=== PATIENT | female | born 1995 | race African-American/Black ===

== ENCOUNTER 2017-01-23 18:12 | Emergency (ER) | payer BC, OTHER ==
[~2017-01-23] VITALS: Ht 167.6 cm; Wt 54.4 kg
[2017-01-23 18:30] LABS: BILIRUBIN,URINE NEGATIVE (NEG); GLUCOSE,URINE NEGATIVE (NEG); NITRITE,URINE NEGATIVE (NEG); PH,URINE 5.5; PROTEIN,URINE 100 mg/dL (NEG-TRACE); UROBILINOGEN,URINE 0.2 mg/dL (0.2 mg/dL)
[2017-01-23 18:52] LABS: BACTERIA,URINE FEW /HPF (0-FEW); RBC,URINE 0 /HPF (0-2); SQUAMOUS EPITHELIAL CELL,UR FEW /LPF
[2017-01-23] MEDS ORDERED: fentaNYL PF VIAL 100 MCG/2 ML VIAL IV PRN (19:15)
[2017-01-23] MEDS ORDERED: ONDANSETRON PF 4 MG/2 ML VIAL. IV ONE (19:30)
[2017-01-23] MEDS ORDERED: IV NORMAL SALINE 1000ML BAG 1,000 ML IV SCH (19:30)
[2017-01-23 19:36] LABS: BASO % 1 % (0-3); EOS % 1 % (0-3); HEMOGLOBIN 12.6 g/dL (12.0-15.5); LYMPH # 1.8 x10^3/uL (1.0-4.8); LYMPH % 30 % (24-48); MEAN CORPUSCULAR HEMOGLOBIN 30 pg (25-35); MEAN CORPUSCULAR HGB CONC 34 g/dL (31-37); MEAN CORPUSCULAR VOLUME 88 fL (79-100); MONO % 6 % (0-9); NEUT % 63 % (31-73); PLATELET COUNT 269 x10^3/uL (140-400); RED BLOOD COUNT 4.22 x10^6/uL (3.50-5.40); RED CELL DISTRIBUTION WIDTH 13.3 % (11.5-14.5); WHITE BLOOD COUNT 6.2 x10^3/uL (4.0-11.0)
[2017-01-23 19:50] LABS: CALCIUM 9.5 mg/dL (8.5-10.1); CREATININE 0.7 mg/dL (0.6-1.0); GFR 127.8; POTASSIUM 3.7 mmol/L (3.5-5.1)
[2017-01-23 19:56] LABS: ALBUMIN 4.4 g/dL (3.4-5.0); ALBUMIN/GLOBULIN RATIO 1.4 (1.0-1.7); TOTAL BILIRUBIN 1.3 mg/dL (0.2-1.0); TOTAL PROTEIN 7.6 g/dL (6.4-8.2)
[2017-01-23] MEDS ORDERED: CONTRAST GIVEN MC PRN (20:30)
[2017-01-23] MEDS ORDERED: IOHEXOL 300 MG/ML 75 ML VIAL IV ONE (20:30)
--- NOTE | 2017-01-23 20:46 | RAD ---
CT study of the abdomen and pelvis with contrast Clinical indications: Left-sided abdominal pain. History of umbilical hernia surgery repair. TECHNIQUE: After IV infusion of 75 cc of Omnipaque 300, helical CT scanning of the abdomen and pelvis is performed. No GI contrast was administered. This may decrease the sensitivity to detect GI tract pathology. PQRS compliance Statement One or more of the following individualized dose reduction techniques were utilized for this study: 1. Automated exposure control 2. Adjustment of the mA and/or kV according to patient size 3. Use of iterative reconstruction technique COMPARISON: None available. FINDINGS: The liver and spleen and pancreas and gallbladder are normal. No extrahepatic biliary ductal dilatation is seen. No adrenal mass is evident. No focal aneurysmal dilatation of the abdominal aorta is seen. No enlarged abdominal or pelvic lymphadenopathy is seen. Both kidneys are functioning and no hydronephrosis or hydroureter or urinary tract stone is seen. Small subcentimeter hypodense nodule of the mid aspect of the right kidney is seen which is indeterminate. Urinary bladder is not abnormally distended. No uterine mass or fibroid is seen. No dominant ovarian cyst or mass is evident. No obstructive bowel pattern is seen. The appendix is difficult to visualize given the lack of GI contrast material and lack of mesenteric fat and retroperitoneal fat. No mesenteric inflammation is evident. No free fluid or free air is seen. No anterior abdominal wall hernia is seen. No lung base consolidation is seen. No osteolytic process is seen. IMPRESSION: No acute abnormality of the abdomen or pelvis is seen. Small subcentimeter hypodense indeterminate nodule of the right kidney. Recommend outpatient sonography for further evaluation. This measures 9 mm. Electronically signed by: Aneesh Wilkinson MD (01/23/2017 8:43 PM) [facility]
[2017-01-23] MEDS ORDERED: NAPROXEN 500 MG TABLET PO ONE (21:30)
[2017-01-23] MEDS ORDERED: metroNIDAZOLE 500 MG TABLET PO ONE (21:30)
[2017-01-23] MEDS ORDERED: NAPR250T2 PO (21:52)
[2017-01-23] MEDS ORDERED: METR500T8 PO (21:52)
[2017-01-23 22:14] VITALS: BP 122/59
--- NOTE | 2017-01-23 22:49 | ED.ADGEN ---
Past Medical History Past Medical History: IBS Past Surgical History: Other Additional Past Surgical Histo: HERNIA Alcohol Use: None Drug Use: None Adult General Chief Complaint Chief Complaint: ABDOMINAL PAIN HPI HPI Patient is a 21 year old woman, with history of irritable bowel syndrome, status post ventral hernia repair surgery, who presents to the emergency department with a complaint of left lower quadrant abdominal pain associated with nausea that began earlier this afternoon. Patient denies any fevers or chills, any travel or surgery, any diarrhea, any discharge or drainage from the vagina. She states that she has been on her period lower than usual. States that she does have irregular periods. Denies any possibility of . Patient's partner is in the room with her. Denies any concerns for STI exposures , denies similar symptoms previously. No urinary complaints. Patient's nursing note patient initially stated that she believes she had one episode of blood in her stool today, however during my evaluation she denies concern for blood in her stool. Review of Systems Review of Systems Constitutional: Denies fever or chills. [] Eyes: Denies change in visual acuity. [] HENT: Denies nasal congestion or sore throat. [] Respiratory: Denies cough or shortness of breath. [] Cardiovascular: Denies chest pain or edema. [] GI: Denies bloody stools or diarrhea. [] : Denies dysuria. [] Musculoskeletal: Denies back pain or joint pain. [] Integument: Denies rash. [] Neurologic: Denies headache, focal weakness or sensory changes. [] Endocrine: Denies polyuria or polydipsia. [] Lymphatic: Denies swollen glands. [] Psychiatric: Denies depression or anxiety. [] Current Medications Current Medications Current Medications Medications (Trade) Dose Ordered Sig/Aimee Start Time Stop Time Status Last Admin Dose Admin Fentanyl Citrate (Fentanyl 2ml Vial) 50 mcg PRN Q15MIN PRN 01/23/17 19:15 01/23/17 22:49 DC 01/23/17 19:21 50 MCG Info (Do NOT chart on this entry -- for MONITORING) 1 each PRN DAILY PRN 01/23/17 20:30 01/23/17 22:49 DC Iohexol (Omnipaque 300 Mg/ml) 75 ml 1X ONCE 01/23/17 20:30 01/23/17 20:31 DC 01/23/17 20:17 75 ML Metronidazole (Flagyl) 500 mg 1X ONCE 01/23/17 21:30 01/23/17 21:31 DC 01/23/17 21:21 500 MG Naproxen (Naprosyn) 500 mg 1X ONCE 01/23/17 21:30 01/23/17 21:31 DC 01/23/17 21:21 500 MG Ondansetron HCl (Zofran) 4 mg 1X ONCE 01/23/17 19:30 01/23/17 19:31 DC 01/23/17 19:20 4 MG Sodium Chloride 1,000 ml @ 1,000 mls/hr Q1H 01/23/17 19:30 01/23/17 20:29 DC 01/23/17 19:20 1,000 MLS/HR Allergies Allergies Allergies Coded Allergies Type Severity Reaction Last Updated Verified No Known Drug Allergies 01/10/14 No Physical Exam Physical Exam Constitutional: Well developed, well nourished, mild distress secondary to pain , non-toxic appearance. [] HENT: Normocephalic, atraumatic, bilateral external ears normal, oropharynx moist, no oral exudates, nose normal. [] Eyes: PERRLA, EOMI, conjunctiva normal, no discharge. [] Neck: Normal range of motion, no tenderness, supple, no stridor. [] Cardiovascular:Heart rate regular rhythm, no murmur, S1, S2, no rubs or gallops. [] Lungs & Thorax: Bilateral breath sounds clear to auscultation , no wheezing, rhonchi, rales. No chest or crepitus or tenderness. [] Abdomen: Bowel sounds normal, soft, tenderness palpation through the lower abdomen and pelvic region, no rebound or rigidity, positive for voluntary guarding, no masses, no pulsatile masses. [] Skin: Warm, dry, no erythema, no rash. [] Back: No tenderness, no CVA tenderness. [] Extremities: No tenderness, no cyanosis, no clubbing, ROM intact, no edema. Negative Homans sign. [] Neurologic: Alert and oriented X 3, normal motor function, normal sensory function, no focal deficits noted. [] Psychologic: Affect normal, judgement normal, mood normal. [] Pelvic examination: External examination is unremarkable, bimanual examination reveals mild tenderness throughout the uterine area, no no adnexal masses or tenderness. Moderate amount of dark red discharge noted on glove. Speculum examination performed without issue, although patient hasn't previously had a speculum examination and states it is uncomfortable. Normal-appearing cervix identified, with no active bleeding, no friability or other abnormalities, no lesions identified. Specimens taken without issue. Current Patient Data Vital Signs Vital Signs Date Time Temp Pulse Resp B/P (MAP) Pulse Ox O2 Delivery O2 Flow Rate FiO2 01/23/17 22:14 76 17 122/59 (80) 98 Room Air 01/23/17 18:20 98.4 98.4 Lab Values Laboratory Tests Test 01/23/17 17:31 01/23/17 18:21 01/23/17 18:39 POC Urine HCG, Qualitative Hcg negative (Negative) Urine Collection Type Unknown Urine Color Yellow Urine Clarity Clear Urine pH 5.5 Urine Specific Galva >=1.030 Urine Protein 100 mg/dL (NEG-TRACE) Urine Glucose (UA) Negative mg/dL (NEG) Urine Ketones (Stick) Negative mg/dL (NEG) Urine Blood Moderate (NEG) Urine Nitrite Negative (NEG) Urine Bilirubin Negative (NEG) Urine Urobilinogen Dipstick 0.2 mg/dL (0.2 mg/dL) Urine Leukocyte Esterase Negative (NEG) Urine RBC 0 /HPF (0-2) Urine WBC 1-4 /HPF (0-4) Urine Squamous Epithelial Cells Few /LPF Urine Bacteria Few /HPF (0-FEW) Urine Mucus Mod /LPF White Blood Count 6.2 x10^3/uL (4.0-11.0) Red Blood Count 4.22 x10^6/uL (3.50-5.40) Hemoglobin 12.6 g/dL (12.0-15.5) Hematocrit 37.0 % (36.0-47.0) Mean Corpuscular Volume 88 fL (79-100) Mean Corpuscular Hemoglobin 30 pg (25-35) Mean Corpuscular Hemoglobin Concent 34 g/dL (31-37) Red Cell Distribution Width 13.3 % (11.5-14.5) Platelet Count 269 x10^3/uL (140-400) Neutrophils (%) (Auto) 63 % (31-73) Lymphocytes (%) (Auto) 30 % (24-48) Monocytes (%) (Auto) 6 % (0-9) Eosinophils (%) (Auto) 1 % (0-3) Basophils (%) (Auto) 1 % (0-3) Neutrophils # (Auto) 3.9 x10^3uL (1.8-7.7) Lymphocytes # (Auto) 1.8 x10^3/uL (1.0-4.8) Monocytes # (Auto) 0.4 x10^3/uL (0.0-1.1) Eosinophils # (Auto) 0.0 x10^3/uL (0.0-0.7) Basophils # (Auto) 0.0 x10^3/uL (0.0-0.2) Sodium Level 140 mmol/L (136-145) Potassium Level 3.7 mmol/L (3.5-5.1) Chloride Level 104 mmol/L (98-107) Carbon Dioxide Level 25 mmol/L (21-32) Anion Gap 11 (6-14) Blood Urea Nitrogen 10 mg/dL (7-20) Creatinine 0.7 mg/dL (0.6-1.0) Estimated GFR (Cockcroft-Gault) 127.8 BUN/Creatinine Ratio 14 (6-20) Glucose Level 97 mg/dL (70-99) Calcium Level 9.5 mg/dL (8.5-10.1) Total Bilirubin 1.3 mg/dL (0.2-1.0) H Aspartate Amino Transferase (AST) 22 U/L (15-37) Alanine Aminotransferase (ALT) 24 U/L (14-59) Alkaline Phosphatase 65 U/L (46-116) Total Protein 7.6 g/dL (6.4-8.2) Albumin 4.4 g/dL (3.4-5.0) Albumin/Globulin Ratio 1.4 (1.0-1.7) Lipase 83 U/L (73-393) Laboratory Tests 01/23/17 18:39 Laboratory Tests 01/23/17 18:39 Microbiology 01/23/17 Wet Prep - Final, Complete EKG EKG Not indicated. [] Radiology/Procedures Radiology/Procedures [][facility] [address] [place] [address] IMAGING REPORT Signed PATIENT: SUKHDEVCRISTIAN Steven ACCOUNT: [id number] : 1995 LOCATION: ER AGE: 21 SEX: F EXAM STATUS: REG ER ORD. PHYSICIAN: DANG WRIGHT DO REASON: abd pain/L side PROCEDURE: CT ABD PELV W/ IV CONTRST ONLY CT study of the abdomen and pelvis with contrast Clinical indications: Left-sided abdominal pain. History of umbilical hernia surgery repair. TECHNIQUE: After IV infusion of 75 cc of Omnipaque 300, helical CT scanning of the abdomen and pelvis is performed. No GI contrast was administered. This may decrease the sensitivity to detect GI tract pathology. PQRS compliance Statement One or more of the following individualized dose reduction techniques were utilized for this study: 1. Automated exposure control 2. Adjustment of the mA and/or kV according to patient size 3. Use of iterative reconstruction technique COMPARISON: None available. FINDINGS: The liver and spleen and pancreas and gallbladder are normal. No extrahepatic biliary ductal dilatation is seen. No adrenal mass is evident. No focal aneurysmal dilatation of the abdominal aorta is seen. No enlarged abdominal or pelvic lymphadenopathy is seen. Both kidneys are functioning and no hydronephrosis or hydroureter or urinary tract stone is seen. Small subcentimeter hypodense nodule of the mid aspect of the right kidney is seen which is indeterminate. Urinary bladder is not abnormally distended. No uterine mass or fibroid is seen. No dominant ovarian cyst or mass is evident. No obstructive bowel pattern is seen. The appendix is difficult to visualize given the lack of GI contrast material and lack of mesenteric fat and retroperitoneal fat. No mesenteric inflammation is evident. No free fluid or free air is seen. No anterior abdominal wall hernia is seen. No lung base consolidation is seen. No osteolytic process is seen. IMPRESSION: No acute abnormality of the abdomen or pelvis is seen. Small subcentimeter hypodense indeterminate nodule of the right kidney. Recommend outpatient sonography for further evaluation. This measures 9 mm. Electronically signed by: Aye Wilkinson MD (01/23/2017 8:43 PM) [facility] DICTATED and SIGNED BY: AYE WILKINSON MD DATE: 01/23/172033 CC: DANG WRIGHT DO; NO PCP ~ Course & Med Decision Making Course & Med Decision Making Pertinent Labs and Imaging studies reviewed. (See chart for details) Patient appears acutely comfortable emergency department, urine test is negative, urinalysis did not reveal acutely concerning findings. No further nausea and vomiting in the ED. After examination, we'll proceed with CT of abdomen and pelvis, and laboratory studies. Patient agreeable this plan, resting more comfortably after receiving pain medication the ED. CT not reveal any evidence acutely concerning findings, noted to have a nodule in the kidney, which I discussed with patient, including need for follow-up. Patient voiced understanding and agreement. Wet prep was positive for bacterial vaginosis, I did discuss this with patient, patient received first dose of metronidazole and naproxen in the ED without issue, on reevaluation she states she is feeling much better and is ready to be discharged home. Discussed importance of follow- up, and establishing a primary care provider, discussed the patient the cultures taken today if they require follow-up will result in a phone call. As stated, patient denies any concerns for STI. Patient remained comfortable, discharged home in stable condition with prescription for metronidazole naproxen , contact information for [employer] and primary care providers, with clear and detailed return instructions and precautions. Dragon Disclaimer Dragon Disclaimer This electronic medical record was generated, in whole or in part, using a voice recognition dictation system. Departure Impression: Primary Impression: Bacterial vaginosis Disposition: 01 HOME, SELF-CARE Condition: IMPROVED Scripts Metronidazole (METRONIDAZOLE) 500 Mg Tablet 1 TAB PO BID, #14 TAB Prov: DANG WRIGHT DO 01/23/17 Naproxen (NAPROXEN) 250 Mg Tablet 250 MG PO BID Y for PAIN, #10 Prov: DANG WRIGHT DO 01/23/17 DANG WRIGHT DO Jan 23, 2017 22:49
== END 2017-01-23 22:17 | disposition home or self-care (01) ==
LOC: ER 18:12
DX: N76.0 Acute vaginitis (principal)
CPT/HCPCS: 36415; 74177; 80053; 81001; 81025; 83690; 85027; 87491; 87591; 96361; 96374; 96375; 99285; J2405; J3010; J7030; Q0111; Q9967

== ENCOUNTER 2017-02-21 13:40 | Emergency (ER) | payer BC ==
[~2017-02-21 13:40] MED LIST: METR500T8 PO; NAPR250T2 PO
[2017-02-21 13:43] VITALS: BP 112/68
[2017-02-21] MEDS ORDERED: HYDR-971 PO (14:12)
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
[2017-02-21] MEDS ORDERED: HYDROcodone/APAP 5/325MG 1 TAB TABLET PO ONE (14:30)
[2017-02-21] MEDS ORDERED: ONDANSETRON ODT 4 MG TAB.RAPDIS. PO ONE (14:30)
--- NOTE | 2017-02-21 14:44 | RAD ---
Right wrist radiograph 3 views 02/21/2017 Clinical indication: Right hand and wrist pain with no focal injury. Comparison: Same day right hand radiograph. Findings: Redemonstration of a transverse fracture of the fourth metacarpal shaft. Normal alignment of the carpal bones without acute fracture. DRUJ is maintained. Soft tissues about the wrist are unremarkable. Impression: 1. No acute wrist fracture or dislocation. 2. Redemonstration of transverse fracture of the fourth metacarpal shaft better seen on same-day right hand radiograph.
--- NOTE | 2017-02-21 14:45 | RAD ---
Right hand radiograph 3 views 02/21/2017 Clinical indication: Right hand pain with no focal injury. Comparison: Same day right wrist radiograph. Right hand radiograph 08/24/2006. Findings: There is a transverse fracture of the fourth metacarpal shaft with mild volar angulation of the distal fracture fragment. Soft tissues are grossly unremarkable. Joint spaces are maintained. Impression: Transverse fracture of the fourth metacarpal shaft with mild angulation.
== END 2017-02-21 15:02 | disposition home or self-care (01) ==
LOC: ER 13:40
DX: S62.324A Displaced fracture of shaft of fourth metacarpal bone, right hand, initial encounter for closed fracture (principal); K58.9 Irritable bowel syndrome, unspecified; J45.909 Unspecified asthma, uncomplicated; X58.XXXA Exposure to other specified factors, initial encounter; Y93.89 Activity, other specified; Y92.89 Other specified places as the place of occurrence of the external cause; Y99.8 Other external cause status
CPT/HCPCS: 29125; 73110; 73130; 99284; Q0162

== ENCOUNTER 2017-11-24 13:12 | Emergency (ER) | payer SELFPAY, BC ==
[2017-11-24] MEDS: HYDROcodone/APAP 5/325MG 1 TAB TABLET PO (15:05)
[2017-11-24] MEDS: DIPHTH,PERTUSS(ACELL),TET TOX 0.5 ML DISP.SYRIN. VAX IM (15:06)
== END 2017-11-24 15:56 | disposition home or self-care (01) ==
LOC: ER 13:12
DX: S93.501A Unspecified sprain of right great toe, initial encounter (principal); F12.10 Cannabis abuse, uncomplicated; W18.40XA Slipping, tripping and stumbling without falling, unspecified, initial encounter; Y93.89 Activity, other specified; Y92.89 Other specified places as the place of occurrence of the external cause; Y99.8 Other external cause status
CPT/HCPCS: 73630; 90471; 90715; 99284